=== PATIENT | female | born 1955 | race Caucasian/White ===

== ENCOUNTER 2021-05-31 13:19 | Emergency (ER) | payer OTHER, BC ==
[~2021-05-31] VITALS: Ht 175.3 cm; Wt 78.0 kg
[2021-05-31] MEDS ORDERED: DILAUDID2 MG PO (13:40)
[2021-05-31] MEDS ORDERED: CABOMETYX20 MG PO (13:40)
[2021-05-31] MEDS ORDERED: ZOFRAN8 MG PO (13:40)
[2021-05-31] MEDS ORDERED: ACID REDUCER20 M1 PO (13:41)
[2021-05-31] MEDS ORDERED: HYDROCORTISONE10 MG PO (13:41)
[2021-05-31] MEDS ORDERED: PROCHLORPERAZIN25 GM (13:41)
[2021-05-31] MEDS ORDERED: LOTENSIN20 MG PO (13:42)
[2021-05-31] MEDS ORDERED: FENTORA BC (13:42)
[2021-05-31] MEDS ORDERED: VITAMIN D310 MC5 (13:42)
== END 2021-05-31 18:21 | disposition home or self-care (01) ==
LOC: ER 13:19
DX: K52.89 Other specified noninfective gastroenteritis and colitis (principal); E86.0 Dehydration; Z11.52 Encounter for screening for COVID-19